=== PATIENT | male | born 1995 | race American Indian/Alaskan Native ===

== ENCOUNTER 2022-03-04 16:58 | Emergency (ER) | payer SELFPAY ==
[2022-03-04] MEDS ORDERED: SODIUM CHLORIDE 0.9% 1000 ML 1,000 ML IV ONE ×2 (17:13→19:23)
[2022-03-04] MEDS ORDERED: ONDANSETRON 4 MG/2 ML INJ IV ONE (17:13)
[2022-03-04] MEDS ORDERED: PANTOPRAZOLE 40 MG INJ IV ONE (17:14)
--- NOTE | 2022-03-04 17:16 | Emergency Department Report ---
ED GI Bleed HPI - General Chief complaint: GI Bleed Stated complaint: HEMATEMESIS/ULCERS/ABD PAIN Time Seen by Provider: 03/04/22 17:13 Source: EMS Mode of arrival: Ambulatory Limitations: No Limitations - History of Present Illness Initial comments: Patient is a 26-year-old male presenting to ED with complaint of vomiting blood he reports history of bleeding gastric ulcers. Also complains of pain in his lower abdomen and left flank. EMS reports patient had bright red bloody emesis on scene however had another episode in route that appeared dark. - Related Data Previous Rx's Medication Instructions Recorded Last Taken Type Pantoprazole [Protonix] 40 mg PO QDAY #30 tablet 03/04/22 Unknown Rx Allergies Allergy/AdvReac Type Severity Reaction Status Date / Time strawberry Allergy Unknown Verified 03/04/22 17:04 ED Review of Systems ROS: Stated complaint: HEMATEMESIS/ULCERS/ABD PAIN Other details as noted in HPI Constitutional: denies: chills, fever Respiratory: denies: cough, shortness of breath, wheezing Cardiovascular: denies: chest pain, palpitations Gastrointestinal: abdominal pain, nausea, vomiting Musculoskeletal: denies: back pain, joint swelling, arthralgia Skin: denies: rash, lesions Neurological: denies: headache, weakness, paresthesias Psychiatric: denies: anxiety, depression ED Past Medical Hx - Past Medical History Previous Medical History?: Yes Hx Hypertension: Yes Hx GERD: Yes Additional medical history: gastric ulcer, - Medications Home Medications: Home Medications Medication Instructions Recorded Confirmed Last Taken Type Pantoprazole [Protonix] 40 mg PO QDAY #30 tablet 03/04/22 Unknown Rx ED Physical Exam - General Limitations: No Limitations General appearance: alert, in no apparent distress - Head Head exam: Present: atraumatic, normocephalic - Respiratory Respiratory exam: Present: normal lung sounds bilaterally. Absent: respiratory distress - Cardiovascular Cardiovascular Exam: Present: regular rate, normal rhythm, normal heart sounds - GI/Abdominal GI/Abdominal exam: Present: soft, tenderness (Mild tenderness in lower abdomen). Absent: distended - Rectal Rectal exam: Present: deferred - Neurological Exam Neurological exam: Present: alert, oriented X3 - Psychiatric Psychiatric exam: Present: normal affect, normal mood - Skin Skin exam: Present: warm, dry, intact, normal color ED Course Vital Signs 03/04/22 03/04/22 03/04/22 17:01 17:17 17:28 Temperature 97.6 F Pulse Rate 66 57 L Respiratory 14 18 Rate Blood Pressure Blood Pressure 115/65 93/47 [Left] O2 Sat by Pulse 96 98 100 Oximetry 03/04/22 03/04/22 03/04/22 17:30 17:46 18:00 Temperature Pulse Rate 58 L 53 L 56 L Respiratory 15 27 H 24 Rate Blood Pressure 93/46 93/47 102/54 Blood Pressure [Left] O2 Sat by Pulse 100 98 Oximetry 03/04/22 03/04/22 03/04/22 18:16 18:30 18:45 Temperature Pulse Rate 76 58 L 57 L Respiratory 21 22 22 Rate Blood Pressure 96/49 95/44 87/54 Blood Pressure [Left] O2 Sat by Pulse 100 100 Oximetry 03/04/22 03/04/22 03/04/22 19:00 19:15 19:23 Temperature Pulse Rate 53 L 57 L 73 Respiratory 17 27 H 15 Rate Blood Pressure 94/44 85/42 Blood Pressure 88/45 [Left] O2 Sat by Pulse 99 100 97 Oximetry 03/04/22 19:24 Temperature Pulse Rate Respiratory Rate Blood Pressure Blood Pressure [Left] O2 Sat by Pulse 97 Oximetry ED Medical Decision Making - Lab Data Result diagrams: 03/04/22 17:26 03/04/22 17:19 - Medical Decision Making Patient given IV Protonix, Zofran and 1 L of saline. Labs are grossly unremarkable. H&H is stable. On reassessment patient states he is feeling better and ready to go home. Recommended follow-up with PCP and GI at his earliest convenience. Critical care attestation.: If time is entered above; I have spent that time in minutes in the direct care of this critically ill patient, excluding procedure time. ED Disposition Clinical Impression: Hematemesis Disposition: 01 HOME / SELF CARE / HOMELESS Is pt being admited?: No Condition: Stable Instructions: Gastrointestinal Bleeding, Hematemesis Additional Instructions: Please follow-up with your regular doctor and GI specialist at your earliest convenience. You may return if your symptoms worsen. Forms: Accompanied Note
[2022-03-04 17:44] LABS: Basophils % (Auto) 0.5 % (0.0-1.8); Eosinophils % (Auto) 0.5 % (0.0-4.3); Hematocrit 41.9 % (35.5-45.6); Lymphocytes # (Auto) 1.1 K/mm3 (1.2-5.4); Lymphocytes % (Auto) 12.1 % (13.4-35.0); Mean Corpuscular HGB Conc 34 % (32-34); Mean Corpuscular Volume 94 fl (84-94); Monocytes # (Auto) 0.4 K/mm3 (0.0-0.8); Platelet Count 293 K/mm3 (140-440); Red Blood Count 4.44 M/mm3 (3.65-5.03); Red Cell Distribution Width 13.3 % (13.2-15.2)
[2022-03-04 17:57] LABS: INR 0.84 (0.87-1.13); Partial Thromboplastin Time 34.6 Sec. (24.2-36.6)
[2022-03-04 17:59] LABS: Alanine Aminotransferase 27 units/L (7-56); Albumin 4.5 g/dL (3.9-5); BUN/Creatinine Ratio 15; Blood Urea Nitrogen 12 mg/dL (9-20); Calcium 9.3 mg/dL (8.4-10.2); Hemolysis Index 4
[2022-03-04 20:28] VITALS: BP 105/70
== END 2022-03-04 20:27 | disposition home or self-care (01) ==
LOC: ED 16:58
DX: K92.0 Hematemesis (principal); I10 Essential (primary) hypertension; K21.9 Gastro-esophageal reflux disease without esophagitis; Z91.02 Food additives allergy status; Z79.899 Other long term (current) drug therapy
CPT/HCPCS: 36415; 80053; 85025; 85610; 85730; 86850; 86900; 86901; 96361; 96374; 96375; 99284; C9113; J2405; J7030